=== PATIENT | male | born 1970 | race American Indian/Alaskan Native ===

== ENCOUNTER 2019-05-05 10:18 | Outpatient (CLI) | payer MEDICAID ==
--- NOTE | 2019-05-05 11:23 | XRay Report ---
CLINICAL DATA: M16.12 UNILATERAL PRIMARY OSTEOARTHRITIS LEFT HIP TECHNIQUE: AP and lateral views of the hip was obtained. FINDINGS: The hip is well mineralized. Marked loss of the articular space is present with subchondral cyst form ation and sclerosis of the articular surfaces. Minimal osteophyte formation is present. No evidence o f a dislocation. There is no evidence of fracture. There is no radiographic evidence of hip effusion. IMPRESSION: Severe degenerative changes of the hip. Signer Name: Tj Pace MD Signed: 05/05/2019 11:19 AM Workstation Name: [id number]
== END 2019-05-05 10:19 | disposition home or self-care (01) ==
LOC: XRAY 10:18
PROVIDERS: ATTEND Orthopaedic Surgery
DX: M16.12 Unilateral primary osteoarthritis, left hip (principal)

== ENCOUNTER 2019-06-23 11:30 | Emergency (ER) | payer MEDICAID ==
[2019-06-23 11:42] VITALS: BP 137/98
--- NOTE | 2019-06-23 17:17 | Emergency Department Report ---
ED Recheck HPI - General Chief Complaint: Medical Clearance Stated Complaint: REATTACH WOUND VAC Time Seen by Provider: 06/23/19 15:34 Source: patient Mode of arrival: Ambulatory Limitations: No Limitations - History of Present Illness Initial Comments: This is a 49-year-old male nontoxic, well nourished in appearance, no acute signs of distress presents to the ED for fci and wound check. Patient had a surgical procedure and wound dressing needs to be examined. Patient denies following up with a graphic specialist. Patient denies any fever, chills, nausea, vomiting, headache, stiff neck, numbness or tingling. Patient denies any allergies. Patient is currently taking antibiotics for this. And follows up with Dr. Mcdonald. Complaint: wound re-check Returns Today for: wound recheck Symptoms Since Prior Visit: no new symptoms Associated Symptoms: none. denies: fever, chills, chest pain, shortness of breath, rash, malaise, nasuea, abdominal pain - Related Data Previous Rx's Medication Instructions Recorded Last Taken Type Apixaban [Eliquis] 5 mg PO DAILY #30 tablet 05/18/19 Unknown Rx Promethazine [Phenergan] 25 mg PO Q6HR PRN #20 tab 05/18/19 Unknown Rx Oxycodone HCl [oxyCODONE] 10 mg PO Q6H PRN #30 tablet 06/16/19 Unknown Rx Pantoprazole [Protonix TAB] 40 mg PO QDAY #30 tablet 06/16/19 Unknown Rx levoFLOXacin [Levaquin] 750 mg PO QDAY #8 tablet 06/16/19 Unknown Rx Allergies Allergy/AdvReac Type Severity Reaction Status Date / Time shellfish derived Allergy Itching Verified 05/11/19 14:30 ED Review of Systems ROS: Stated complaint: REATTACH WOUND VAC Other details as noted in HPI Constitutional: denies: chills, fever Eyes: denies: eye pain, eye discharge, vision change ENT: denies: ear pain, throat pain Respiratory: denies: cough, shortness of breath, wheezing Cardiovascular: denies: chest pain, palpitations Endocrine: no symptoms reported Gastrointestinal: denies: abdominal pain, nausea, diarrhea Genitourinary: denies: urgency, dysuria Musculoskeletal: denies: back pain, joint swelling, arthralgia Skin: denies: rash, lesions Neurological: denies: headache, weakness, paresthesias Psychiatric: denies: anxiety, depression Hematological/Lymphatic: denies: easy bleeding, easy bruising ED Past Medical Hx - Past Medical History Hx Hypertension: Yes (off meds) Hx Congestive Heart Failure: No Hx Diabetes: No Hx Arthritis: Yes (hip) Hx Asthma: No Hx COPD: No Hx HIV: No - Surgical History Past Surgical History?: Yes Hx Cholecystectomy: Yes Additional Surgical History: Left hip replacement. back surgery. knee replacement - Social History Smoking Status: Never Smoker Substance Use Type: None - Medications Home Medications: Home Medications Medication Instructions Recorded Confirmed Last Taken Type Apixaban [Eliquis] 5 mg PO DAILY #30 tablet 05/18/19 06/02/19 Unknown Rx Promethazine [Phenergan] 25 mg PO Q6HR PRN #20 tab 05/18/19 06/01/19 Unknown Rx Oxycodone HCl [oxyCODONE] 10 mg PO Q6H PRN #30 tablet 06/16/19 Unknown Rx Pantoprazole [Protonix TAB] 40 mg PO QDAY #30 tablet 06/16/19 Unknown Rx levoFLOXacin [Levaquin] 750 mg PO QDAY #8 tablet 06/16/19 Unknown Rx ED Physical Exam - General Limitations: No Limitations General appearance: alert, in no apparent distress - Head Head exam: Present: atraumatic, normocephalic - Neck Neck exam: Present: normal inspection, full ROM. Absent: tenderness, meningismus, lymphadenopathy - Extremities Exam Extremities exam: Present: normal inspection, full ROM, tenderness, normal capillary refill, other (Some serosanguineous fluid from left surgical hip area. No surrounding cellulitis noted. ). Absent: joint swelling, calf tenderness - Back Exam Back exam: Present: normal inspection, full ROM - Neurological Exam Neurological exam: Present: alert, oriented X3, normal gait - Psychiatric Psychiatric exam: Present: normal affect, normal mood - Skin Skin exam: Present: warm, dry, intact, normal color. Absent: rash ED Course Vital Signs 06/23/19 11:37 Temperature 97.9 F Pulse Rate 102 H Respiratory 20 Rate Blood Pressure 137/98 O2 Sat by Pulse 98 Oximetry - Reevaluation(s) Reevaluation #1: 06/23/19 17:21 Patient is speaking in full sentences with no signs of distress noted. ED Recheck MDM - Medical Decision Making 49-year-old male that presents with wound check. Patient is stable and was examined by me. Wound nurse has been consulted and has seen the patient. Wound dressing has been applied. career services officer has been consulted and patient has received fci information. Patient was educated on proper wound care. Patient was instructed to follow-up with a primary care doctor in 3-5 days or if symptoms worsen and continue return to emergency room as soon as possible. At time of discharge, the patient does not seem toxic or ill in appearance. No acute signs of distress noted. Patient agrees to discharge treatment plan of care. No further questions noted by the patient. Critical care attestation.: If time is entered above; I have spent that time in minutes in the direct care of this critically ill patient, excluding procedure time. ED Disposition Clinical Impression: Visit for wound check, Housing situation unstable Disposition: [id number] TO HOME OR SELFCARE Is pt being admited?: No Does the pt Need Aspirin: No Condition: Stable Instructions: Acute Wound Care (ED) Additional Instructions: Follow-up with a primary care doctor in 3-5 days or if symptoms worsen and continue return to emergency room as soon as possible. Referrals: LILLIAN MENESES MD [Primary Care Provider] - 3-5 Days RAYMOND HERZOG MD [Staff Physician] - 3-[address] [facility] [Provider Group] - 3-5 Days
== END 2019-06-23 17:28 | disposition home or self-care (01) ==
LOC: ED 11:30
DX: M25.552 Pain in left hip (principal); Z48.01 Encounter for change or removal of surgical wound dressing; I10 Essential (primary) hypertension; M13.88 Other specified arthritis, other site; Z90.49 Acquired absence of other specified parts of digestive tract; Z98.890 Other specified postprocedural states; Z91.013 Allergy to seafood

== ENCOUNTER 2019-07-02 09:11 | Outpatient (CLI) | payer MEDICAID ==
[2019-07-02] MEDS ORDERED: LIDOCAINE (4%) 40 MG/ML TOPICAL SOLN 50 ML BOTTLE TP ONE (10:00)
== END 2019-07-02 09:12 | disposition home or self-care (01) ==
LOC: WOUND 09:11
PROVIDERS: ATTEND Surgery
DX: T81.89XA Other complications of procedures, not elsewhere classified, initial encounter (principal); M19.90 Unspecified osteoarthritis, unspecified site; F17.210 Nicotine dependence, cigarettes, uncomplicated; Z96.642 Presence of left artificial hip joint; Y83.8 Other surgical procedures as the cause of abnormal reaction of the patient, or of later complication, without mention of misadventure at the time of the procedure; Y92.89 Other specified places as the place of occurrence of the external cause
CPT/HCPCS: 99215; G0463

== ENCOUNTER 2020-05-11 10:41 | Outpatient (CLI) | payer MEDICAID ==
[2020-05-11 11:52] LABS: Alanine Aminotransferase 13 units/L (7-56); Albumin 4.1 g/dL (3.9-5); BUN/Creatinine Ratio 15; Blood Urea Nitrogen 19 mg/dL (9-20); Hemolysis Index 0
[2020-05-11 11:58] LABS: Basophils # (Auto) 0.1 K/mm3 (0.0-0.1); Basophils % (Auto) 0.6 % (0.0-1.8); Eosinophils # (Auto) 0.1 K/mm3 (0.0-0.4); Eosinophils % (Auto) 1.2 % (0.0-4.3); Hematocrit 40.6 % (35.5-45.6); Hemoglobin 13.4 gm/dl (11.8-15.2); Lymphocytes # (Auto) 1.6 K/mm3 (1.2-5.4); Lymphocytes % (Auto) 16.4 % (13.4-35.0); Mean Corpuscular HGB Conc 33 % (32-34); Mean Corpuscular Volume 88 fl (84-94); Monocytes # (Auto) 0.8 K/mm3 (0.0-0.8); Monocytes % (Auto) 8.3 % (0.0-7.3); Platelet Count 250 K/mm3 (140-440); Red Blood Count 4.61 M/mm3 (3.65-5.03); Red Cell Distribution Width 16.4 % (13.2-15.2)
[2020-05-11 12:02] LABS: Erythrocyte Sedimentation Rate 58 mm/Hr (0-20)
== END 2020-05-11 10:42 | disposition home or self-care (01) ==
LOC: LAB 10:41
PROVIDERS: ATTEND Orthopaedic Surgery
DX: Z11.59 Encounter for screening for other viral diseases (principal)
CPT/HCPCS: 36415; 80053; 85025; 85652; 86140

== ENCOUNTER 2020-05-13 12:31 | Outpatient (CLI) | payer MEDICAID ==
--- NOTE | 2020-05-13 15:57 | XRay Report ---
LUMBAR SPINE 3 VIEWS INDICATION: BACK PAIN COMPARISON: None. FINDINGS: There is no fracture, subluxation, or other acute radiographic abnormality of the lumbar spine. There is moderate disc space narrowing and L4-5. There is mild anterior osteophyte formation throughout th e lumbar spine. There is mild disc space narrowing at L3-4 and L1-2. Signer Name: Luke Smith MD Signed: 05/13/2020 3:53 PM Workstation Name: [id number]
== END 2020-05-13 12:32 | disposition home or self-care (01) ==
LOC: XRAY 12:31
PROVIDERS: ATTEND Orthopaedic Surgery
DX: M48.061 Spinal stenosis, lumbar region without neurogenic claudication (principal); M25.78 Osteophyte, vertebrae
CPT/HCPCS: 72110

== ENCOUNTER 2020-06-10 10:33 | Day surgery (SDC) | payer MEDICAID ==
[2020-06-10] MEDS ORDERED: LIDOCAINE (1%) 10 MG/1 ML VIAL 20 ML MDV INFILTRATI ONE (12:30)
[2020-06-10] MEDS ORDERED: LIDOCAINE (1%) 10 MG/1 ML VIAL 20 ML MDV ONE (13:17)
[2020-06-10 13:55] VITALS: BP 131/80
--- NOTE | 2020-06-10 14:41 | Ultrasound Report ---
Ultrasound-guided aspiration of left hip INDICATION : complications of internal prosthesis. Left hip pain from prior left hip arthroplasty. Ev aluate for persistent left. Prosthetic fluid collection COMPARISON: 06/15/2019 PROCEDURE: The risks (including but not limited to bleeding and infection) and benefits were explain ed to the patient and informed consent was obtained. A time out procedure was performed. The proced ure site was prepped and draped in the usual sterile fashion and lidocaine was used for local anesthe elver. Under direct ultrasound guidance a 18-gauge spinal needle was directed into a tiny pocket of fluid la teral to the femoral component of the left hip arthroplasty and about 1 mL of 0 segment is fluid was aspirated and sent for microbiologic and other laboratory analysis. The patient tolerated the procedure well with no complications. IMPRESSION: Successful ultrasound-guided aspiration of the left hip, as above Signer Name: Dante Weiss MD Signed: 06/10/2020 2:37 PM Workstation Name: [id number]
== END 2020-06-10 14:20 | disposition home or self-care (01) ==
LOC: US 10:33 → CATHLABREC 10:33 → EDSTATUS 12:00 → CATHLABREC 14:20
PROVIDERS: ATTEND Orthopaedic Surgery
DX: T84.59XA Infection and inflammatory reaction due to other internal joint prosthesis, initial encounter (principal); I10 Essential (primary) hypertension; M19.90 Unspecified osteoarthritis, unspecified site; F31.9 Bipolar disorder, unspecified; F41.9 Anxiety disorder, unspecified; Z72.89 Other problems related to lifestyle; Z98.890 Other specified postprocedural states; Z91.013 Allergy to seafood; Z79.899 Other long term (current) drug therapy; Y82.8 Other medical devices associated with adverse incidents; Y92.89 Other specified places as the place of occurrence of the external cause
CPT/HCPCS: 10160; 76942; 87116

== ENCOUNTER 2020-06-24 09:37 | Outpatient (CLI) | payer MEDICAID ==
[2020-06-24 10:10] LABS: Basophils % (Auto) 0.6 % (0.0-1.8); Eosinophils # (Auto) 0.2 K/mm3 (0.0-0.4); Eosinophils % (Auto) 2.3 % (0.0-4.3); Hemoglobin 12.8 gm/dl (11.8-15.2); Lymphocytes # (Auto) 1.6 K/mm3 (1.2-5.4); Lymphocytes % (Auto) 20.5 % (13.4-35.0); Mean Corpuscular HGB Conc 34 % (32-34); Mean Corpuscular Volume 90 fl (84-94); Monocytes % (Auto) 12.4 % (0.0-7.3); Platelet Count 235 K/mm3 (140-440); Red Cell Distribution Width 17.1 % (13.2-15.2)
[2020-06-24 10:23] LABS: Erythrocyte Sedimentation Rate TNR mm/Hr (0-20)
[2020-06-24 10:30] LABS: Alanine Aminotransferase 9 units/L (7-56); Albumin 3.5 g/dL (3.9-5); BUN/Creatinine Ratio 8; Blood Urea Nitrogen 7 mg/dL (9-20); Calcium 8.5 mg/dL (8.4-10.2); Hemolysis Index 12
== END 2020-06-24 09:38 | disposition home or self-care (01) ==
LOC: LAB 09:37
PROVIDERS: ATTEND Orthopaedic Surgery
DX: T81.49XD Infection following a procedure, other surgical site, subsequent encounter (principal); X58.XXXD Exposure to other specified factors, subsequent encounter
CPT/HCPCS: 36415; 80053; 85025; 86140